=== PATIENT | female | born 1950 | race Hispanic/Latino ===

== ENCOUNTER 2017-10-22 15:03 | Emergency (ER) | payer MEDICARE ==
[2017-10-22 15:11] VITALS: BMI 47.2
--- NOTE | 2017-10-22 15:44 | ED PDOC ---
Arrival/HPI - General Chief Complaint: Trauma Time Seen by Provider: 10/22/17 15:19 Historian: Patient - History of Present Illness Narrative History of Present Illness (Text): 10/22/17 15:39 67yo female with pmhx of hypertension and diabetes bib EMS for left foot/ankle pain s./p trauma this afternoon. states she tripped over a metal fence and injured her foot/ankle. Notes pain with weight bearing. She denies knee pain, contrary to the triage note. Denies any other complaint. Past Medical History - Provider Review Nursing Documentation Reviewed: Yes - Infectious Disease Hx of Infectious Diseases: None - Reproductive Menopause: No - Cardiac Hx Hypertension: Yes Hx Pacemaker: No - Neurological Hx Paralysis: No - Endocrine/Metabolic Hx Diabetes Mellitus Type 2: Yes - Hematological/Oncological Hx Blood Transfusions: No Hx Blood Transfusion Reaction: No - Musculoskeletal/Rheumatological Hx Musculoskeletal Disorders: Yes (DUE TO PLANNED ANESTHESIA) - Psychiatric Hx Emotional Abuse: No Hx Physical Abuse: No Hx Substance Use: No - Anesthesia Hx Anesthesia Reactions: No Hx Malignant Hyperthermia: No - Suicidal Assessment Feels Threatened In Home Enviroment: No Family/Social History - Physician Review Nursing Documentation Reviewed: Yes Family/Social History: Unknown Family HX Smoking Status: Never Smoked Hx Alcohol Use: No Hx Substance Use: No Allergies/Home Meds Allergies/Adverse Reactions: Allergies No Known Allergies Allergy (Verified 04/28/13 15:17) Home Medications: Home Meds Medication Instructions Recorded Confirmed Pantoprazole [Protonix EC Tab] 20 mg PO QAM 04/28/13 10/22/17 cloNIDine [clonidine HCl] 0.2 mg PO TID 04/28/13 10/22/17 Aspirin [Ecotrin] 81 mg PO DAILY 07/22/15 10/22/17 Bimatoprost [Lumigan 2.5 ml] 1 drop OU HS 07/22/15 10/22/17 Cholecalciferol (Vitamin D3) 2,000 unit PO DAILY 07/22/15 10/22/17 [Vitamin D] Ciprofloxacin [Cipro] 500 mg PO Q12H 07/22/15 10/22/17 Gabapentin [Neurontin] 600 mg PO HS 07/22/15 10/22/17 Glipizide [Glucotrol] 5 mg PO BID 07/22/15 10/22/17 Ibuprofen [Motrin] 600 mg PO Q6H PRN 07/22/15 10/22/17 Oxycodone HCl/Acetaminophen 1 each PO Q6H PRN 07/22/15 10/22/17 [Percocet 5-325 mg Tablet] Review of Systems - Physician Review All systems were reviewed & negative as marked: Yes - Review of Systems Constitutional: Normal Eyes: Normal ENT: Normal Respiratory: Normal Cardiovascular: Normal Gastrointestinal: Normal Genitourinary Female: Normal Musculoskeletal: Arthralgias (Left ankle/foot) Skin: Normal Neurological: Normal Endocrine: Normal Hemo/Lymphatic: Normal Psychiatric: Normal Physical Exam Vital Signs Reviewed: Yes Vital Signs Temp Pulse Resp BP Pulse Ox 10/22/17 16:29 61 19 147/86 98 10/22/17 15:10 98.6 F 72 16 99 Temperature: Afebrile Blood Pressure: Normal Pulse: Regular Respiratory Rate: Normal Appearance: Positive for: Well-Appearing, Non-Toxic, Comfortable Pain Distress: None Mental Status: Positive for: Alert and Oriented X 3 Finger Stick Blood Glucose: 124 - Systems Exam Head: Present: Atraumatic, Normocephalic Pupils: Present: PERRL Extroacular Muscles: Present: EOMI Conjunctiva: Present: Normal Mouth: Present: Moist Mucous Membranes Neck: Present: Normal Range of Motion Respiratory/Chest: Present: Clear to Auscultation, Good Air Exchange. No: Respiratory Distress, Accessory Muscle Use Cardiovascular: Present: Regular Rate and Rhythm, Normal S1, S2. No: Murmurs Abdomen: No: Tenderness, Distention, Peritoneal Signs Back: Present: Normal Inspection Upper Extremity: Present: Normal Inspection. No: Cyanosis, Edema Lower Extremity: Present: NORMAL PULSES, Normal ROM, Tenderness (Left lateral malleolus and foot), Neurovascularly Intact. No: Edema, Swelling, Erythema, Temperature Abnormalties Neurological: Present: GCS=15, CN II-XII Intact, Speech Normal Skin: Present: Warm, Dry, Normal Color. No: Rashes Psychiatric: Present: Alert, Oriented x 3, Normal Insight, Normal Concentration Medical Decision Making ED Course and Treatment: 10/22/17 18:05 PT in ED for stated history. Left ankle/foot xray - No acute fracture. Calcneal spur was noted. Oscar wrap and ortho shoe was placed. Cane given for ambulation. PT advised to RICE foot. Referred to her PMD/[facility] - Lab Interpretations Lab Results: Lab Results 10/22/17 15:16: POC Glucose (mg/dL) 124 H - RAD Interpretation Radiology Orders: 10/22/17 15:37 ANKLE LEFT 3 VIEWS ROUTINE [RAD] Stat FOOT LEFT 3 VIEWS ROUTINE [RAD] Stat - Medication Orders Current Medication Orders: Discontinued Medications Ibuprofen (Motrin Tab) 800 mg PO STAT STA Stop: 10/22/17 15:39 Last Admin: 10/22/17 16:00 Dose: 800 mg Disposition/Present on Arrival - Present on Arrival Any Indicators Present on Arrival: No History of DVT/PE: No History of Uncontrolled Diabetes: No Urinary Catheter: No History of Decub. Ulcer: No History Surgical Site Infection Following: None - Disposition Have Diagnosis and Disposition been Completed?: Yes Diagnosis: Ankle sprain, Foot sprain Disposition: HOME/ ROUTINE Disposition Time: 17:30 Patient Plan: Discharge Patient Problems: Current Active Problems Problem Status Onset Ankle sprain Acute Condition: STABLE Discharge Instructions (ExitCare): Ankle Sprain (DC), Foot Sprain (DC) Additional Instructions: Follow up with your Doctor/applications trainer Return to ED for any new or worsening symptoms Prescriptions: Ibuprofen [Motrin Tab] 600 mg PO Q6 #20 tab Referrals: Pankaj York JD, MD [Primary Care Provider] - Follow up with primary Adriano Jovel DPM [Staff Provider] - Follow up with primary Forms: [facility] ([place]itian)
--- NOTE | 2017-10-22 17:07 | RAD ---
PROCEDURE: Left Ankle Radiographs. HISTORY: ankle pain s/p trauma COMPARISON: None FINDINGS: BONES: There is diffuse bone demineralization. There is no acute displaced fracture or bone destruction. There is a prominent plantar calcaneal spur. JOINTS: No osteoarthritis. Ankle mortise maintained. Talar dome intact SOFT TISSUES: Normal. OTHER FINDINGS: None. IMPRESSION: No acute fracture or dislocation.
--- NOTE | 2017-10-22 17:52 | RAD ---
PROCEDURE: Left Foot Radiographs. HISTORY: foot pain s/p trauma COMPARISON: None. FINDINGS: BONES: No acute fracture. Incidental finding: Plantar calcaneal spur. JOINTS: Tarsal metatarsal degenerative change. SOFT TISSUES: Normal. OTHER FINDINGS: None. IMPRESSION: No acute findings related to/accounting for the clinical presentation. Additional benign and/or incidental findings described above.
[2017-10-22 18:36] VITALS: BP 141/77; PULSE 64; RESP 18; TEMP 98.5; O2SAT 99
== END 2017-10-22 18:18 | disposition home or self-care (01) ==
LOC: ED 15:03
DX: S93.602A Unspecified sprain of left foot, initial encounter (principal); S93.402A Sprain of unspecified ligament of left ankle, initial encounter; W01.0XXA Fall on same level from slipping, tripping and stumbling without subsequent striking against object, initial encounter; E11.9 Type 2 diabetes mellitus without complications; I10 Essential (primary) hypertension

== ENCOUNTER 2018-06-06 06:21 | Day surgery (SDC) | payer MEDICARE ==
[2018-06-06] MEDS ORDERED: Propofol 10 mg/ml Inj (20 ML) ONE (08:00)
[2018-06-06] MEDS ORDERED: Sodium Chloride 0.9% 1,000 ML IV SCH (09:00)
[2018-06-06 09:30] VITALS: PULSE 68
[2018-06-06 10:04] VITALS: BP 152/76; RESP 18; TEMP 97.7
[2018-06-06 11:09] VITALS: O2SAT 97
== END 2018-06-06 10:49 | disposition home or self-care (01) ==
LOC: ENDO 06:21
PROVIDERS: ATTEND Internal Medicine Gastroenterology
DX: Z12.11 Encounter for screening for malignant neoplasm of colon (principal); K63.5 Polyp of colon; K57.30 Diverticulosis of large intestine without perforation or abscess without bleeding; K64.8 Other hemorrhoids; I10 Essential (primary) hypertension; E11.40 Type 2 diabetes mellitus with diabetic neuropathy, unspecified; Z79.84 Long term (current) use of oral hypoglycemic drugs; Z98.0 Intestinal bypass and anastomosis status; Z85.038 Personal history of other malignant neoplasm of large intestine
CPT/HCPCS: 45382; 45384; 82948; 88305; J0171; J2001; J2704; J7030; J7040